=== PATIENT | female | born 1990 | race Caucasian/White ===

== ENCOUNTER 2018-08-28 20:17 | Emergency (ER) | END 2018-08-28 22:22 | disposition home or self-care (01) ==

== ENCOUNTER 2018-08-28 22:36 | Outpatient (CLI) | END 2018-08-29 00:25 | disposition home or self-care (01) ==

== ENCOUNTER 2018-08-29 09:56 | Inpatient (IN) | END 2018-09-01 20:50 | disposition home or self-care (01) | DRG 807 ==